=== PATIENT | male | born 2000 | race Caucasian/White ===

== ENCOUNTER 2022-05-19 16:54 | Emergency (ER) | payer MEDICAID, OTHER, SELFPAY ==
[~2022-05-19] VITALS: Ht 180.3 cm; Wt 68.0 kg
[2022-05-19 16:56] VITALS: BP 146/85
[2022-05-19] MEDS ORDERED: IVER1TAB PO ×2 (19:05→19:07)
== END 2022-05-19 19:47 | disposition home or self-care (01) ==
LOC: M ED 16:54
DX: B86 Scabies (principal)